=== PATIENT | male | born 1945 | race Caucasian/White ===

== ENCOUNTER 2017-05-14 12:18 | Emergency (ER) | payer MEDICARE, OTHER ==
[~2017-05-14] VITALS: Ht 182.9 cm; Wt 93.0 kg
[2017-05-14] MEDS ORDERED: ASPIR 8181 MG PO (12:28)
[2017-05-14] MEDS ORDERED: ACETAMINOPHEN-1 EAC1 PO (13:15)
[2017-05-14] MEDS ORDERED: KEFLEX500 M1 PO (13:15)
[2017-05-14 13:24] VITALS: BP 133/92
== END 2017-05-14 13:25 | disposition home or self-care (01) ==
LOC: M.ERS 12:18
DX: S61.211A Laceration without foreign body of left index finger without damage to nail, initial encounter (principal); Z90.89 Acquired absence of other organs; Z85.828 Personal history of other malignant neoplasm of skin; W26.8XXA Contact with other sharp object(s), not elsewhere classified, initial encounter; Y93.89 Activity, other specified; Y92.89 Other specified places as the place of occurrence of the external cause; Y99.8 Other external cause status

== ENCOUNTER → 2017-07-06 | Outpatient (CLI) | payer MEDICARE, OTHER ==
[~2017-07-06] MED LIST: ACETAMINOPHEN-1 EAC1 PO; ASPIR 8181 MG PO; KEFLEX500 M1 PO
== END ==
LOC: M.MRI 06:57
DX: M22.41 Chondromalacia patellae, right knee (principal); M25.461 Effusion, right knee; S83.203A Other tear of unspecified meniscus, current injury, right knee, initial encounter; X58.XXXA Exposure to other specified factors, initial encounter; Y93.89 Activity, other specified; Y92.89 Other specified places as the place of occurrence of the external cause; Y99.8 Other external cause status